=== PATIENT | male | born 1925 | race Caucasian/White ===

== ENCOUNTER 2017-01-26 17:50 | Inpatient (IN) | payer OTHER ==
[~2017-01-26] VITALS: Ht 162.6 cm; Wt 75.7 kg
--- NOTE | 2017-01-26 18:01 | NUR ---
PT WHEELCHAIRED TO LOBBY WITH FAMILY. PT ALERT AND ORIENTED, BREATHING E/U. PT HAD EKG DONE IN TRIAGE RESULTS SHOWN TO . PT AWAITING ROOM AVAIALBILITY.
--- NOTE | 2017-01-26 19:00 | NUR ---
MSE COMPLETED BY DR. ALEMAN
--- NOTE | 2017-01-26 19:21 | NUR ---
PT SEEN SITTING ON GURNEY C/O NON-RADIATING CHEST PAIN SINCE THIS MORNING. PT STATES THAT THE PAIN IS NOW GONE. PT GIVEN ASA, PLACED ON MONITOR, NSR AND PLACED ON 2 PLM 02 VIA NC. PT HAS EVEN AND NONLABORED RESPIRATIONS. PT APPEARS TO BE IN NAD. WILL CONTINUE TO MONITOR. CALL LIGHT IS WITHIN REACH.
[2017-01-26 19:39] LABS: BASOPHIL % 0.4 % (0-2); PLATELET COUNT 190 x10^3mcL (130-400)
[2017-01-26 19:47] LABS: CHLORIDE SERUM 101 mmol/L (98-107); CREATININE SERUM 1.4 mg/dL (0.7-1.3); GLUCOSE SERUM 119 mg/dL (74-106); POTASSIUM SERUM 3.5 mmol/L (3.5-5.1); SODIUM SERUM 139 mmol/L (136-145)
[2017-01-26 19:52] LABS: ALBUMIN 3.7 g/dL (3.4-5.0); ALKALINE PHOSPHATASE 115 U/L (46-116); ALT/SGPT 34 U/L (16-63); AST/SGOT 19 U/L (15-37); BILIRUBIN TOTAL 0.56 mg/dL (0.20-1.00); TOTAL PROTEIN, SERUM 7.3 g/dL (6.4-8.2)
[2017-01-26 20:05] LABS: RED CELL DISTRIBUTION WIDTH 14.8 % (11.5-14.5)
--- NOTE | 2017-01-26 20:40 | NUR ---
PT STATES HE TAKES UNKNOWN BP MEDICATION AT HOME
--- NOTE | 2017-01-26 21:50 | NUR ---
RESIDENT MD IS AT BEDSIDE.
[2017-01-26 22:03] LABS: CHOLESTEROL/HDL RATIO 3.4; PHOSPHOROUS 3.5 mg/dL (2.5-4.9)
--- NOTE | 2017-01-26 22:03 | NUR ---
REPORT CALLED TO KUMAR ALMAZAN. ALL QUESTIONS AND CONCERNS ADDRESSED. PT TO BE MOVED TO ROOM [facility].
--- NOTE | 2017-01-26 22:07 | NUR ---
RECEIVED PT FROM ED VIA [facility], CAME IN DUE TO CHEST PAIN. AAOX4. DENIES HEADACHE/DIZZINESS. NO SOB NOTED. DENIES CHEST PAIN/PRESSURE, SR ON THE MONITOR. DENIES ABDOMINAL DISCOMFORT. BOWEL SOUNDS ACTIVE. IV SITE PATENT AND INTACT. DAUGHTER AT BEDSIDE. SIDE RAILS UPX2. CALL LIGHT ON REACH. ENDORSED
--- NOTE | 2017-01-26 22:10 | NUR ---
RECEIVED REPORT FROM ED AND RESOURCE RN MIKEY. PATIENT ORIENTED TO ROOM. IV FLUID STARTED PER DOCTOR'S ORDER. BED IN LOWEST POSITION. CALL LIGHT WITHIN REACH. WILL CONTINUE TO MONITOR.
[2017-01-26 22:11] LABS: T3 TOTAL 0.97 ng/mL
[2017-01-26 22:22] VITALS: BP 148/78
[2017-01-26 22:24] VITALS: Ht 162.6 cm; Wt 75.7 kg
[2017-01-26 22:38] LABS: FREE T4 0.95 ng/dL (0.76-1.46); FREE THYROXINE INDEX 2.8 ug/dL (1.4-4.5); T4(THYROXINE) 7.3 ug/dL (4.7-13.3)
--- NOTE | 2017-01-27 05:06 | NUR ---
PATIENT RESTED IN INTERVALS THROUGHOUT THE NIGHT. NO DISTRESS NOTED. NO C/O CHEST PAIN/DISCOMFORT. ALL NEEDS MET. SAFETY AND COMFORT MEASURES MAINTAINED. BED IN LOWEST POSITION. CALL LIGHT WITHIN REACH. WILL CONTINUE TO MONITOR AND ENDORSE TO NEXT SHIFT NURSE.
[2017-01-27 06:17] LABS: CALCIUM 8.4 mg/dL (8.5-10.1); CHLORIDE SERUM 105 mmol/L (98-107); CREATININE SERUM 1.1 mg/dL (0.7-1.3); GLUCOSE SERUM 96 mg/dL (74-106); POTASSIUM SERUM 3.2 mmol/L (3.5-5.1); SODIUM SERUM 142 mmol/L (136-145)
[2017-01-27 06:18] LABS: ALBUMIN 3.1 g/dL (3.4-5.0)
[2017-01-27 06:19] LABS: BASOPHIL % 0.4 % (0-2); PLATELET COUNT 173 x10^3mcL (130-400)
[2017-01-27 07:00] LABS: RED CELL DISTRIBUTION WIDTH 14.7 % (11.5-14.5)
--- NOTE | 2017-01-27 07:20 | NUR ---
RECEIVED PATIENT AWAKE AND ALERT SPEAK MICRONESIAN, NO ACUTE DISTRESS NOTED, DENIES CHEST PAIN, PATIENT ASKING IF HE BEING DISCHARGE INFORM PATIENT DOCTOR WILL MAKING ROUND THIS MORNING WILL FIND OUT. POC UPDATED, IV INTACT; CALL LIGHT WITHIN REACH.
--- NOTE | 2017-01-27 09:07 | NUR ---
PATIENT SITTING AT THE SIDE OF BED WITH SON IN THE ROOM, DENIES CHEST PAIN AT THIS TIME. DR. HOOD DISCUSS WITH PATIENT POC, HEART MONITORING AND LAB ( TROPONIN X 1); WILL NEED OUTPATIENT STRESS TEST. DR SAHNI WAS INFORM K 3.2 WITH NEW ORDER TO REPLACE
[2017-01-27 09:57] VITALS: BP 125/70
--- NOTE | 2017-01-27 09:57 | NUR ---
PATIENT SIT IN BED NO COMPLAINTS, ALL DUE MEDS GIVEN, KCL 40 MEQ PO GIVEN FOR K 3.2; SON REMAIN AT BEDSIDE. NEEDS ANTICIPATED.
--- NOTE | 2017-01-27 12:00 | NUR ---
PATIENT SIT AT SIDE OF BED NO COMPLAINTS, SON REMAIN AT BEDSIDE. NEEDS ANTICIPATED. CONT TO MONITOR.
[2017-01-27 13:15] VITALS: BP 129/68
--- NOTE | 2017-01-27 14:54 | NUR ---
PATIENT LAYING IN BED NO DISTRESS NOTED, TECH AT BEDSIDE PERFORM ECHO. CONT TO MONITOR.
[2017-01-27 17:59] VITALS: BP 143/77
--- NOTE | 2017-01-27 18:12 | NUR ---
PATIENT UP TO BATHROOM AND BACK INDEPENDENT NO COMPLAINT, IV INTACT, VISITORS AT BEDSIDE, CONT TO MONITOR.
--- NOTE | 2017-01-27 19:10 | NUR ---
SEEN IN BED AAOX4. NO RESP DISTRESS ON ROOM AIR. DENIES CHEST PAIN OR CHEST PRESSURE. LUNG SOUND CTA. NSR ON TELEMETRY#21. LUNG SOUND CTA. STS ABLE TO AMBULATE TO BATHROOM WITH STEADY GAIT. IVF NS INFUSING WELL TO RIGHT WRIST IV SITE. PLAN OF CARE DISCUSSED. CALL LIGHT PLACED WITHIN EASY REACH. SIDERAILS UP X2.
[2017-01-27 21:29] VITALS: BP 133/77
--- NOTE | 2017-01-27 22:00 | NUR ---
NOTED IV TO RIGHT WRIST INFILTRATED, NO SIGNS OF INFLAMATION NOTED. IV CATH REMOVED AND NEW IV CATH#22 INSERTED TO LFA WITH GOOD BLD RETURNED AND FLUSHED WELL. IVF NS CONTINUED AT 50ML/HR.
[2017-01-28 05:42] VITALS: BP 137/72; BP 169/105
[2017-01-28 06:22] LABS: BASOPHIL % 0.4 % (0-2); PLATELET COUNT 175 x10^3mcL (130-400)
--- NOTE | 2017-01-28 06:22 | NUR ---
NO ANY ACUTE DISTRESS THROUGHOUT SHIFT. VSS. DENIES CHEST PAIN. BRP. IVF NS INFUSING WELL TO LFA IV SITE.
[2017-01-28 06:39] LABS: CARBON DIOXIDE 29.2 mmol/L (21-32); CHLORIDE SERUM 107 mmol/L (98-107); GLUCOSE SERUM 91 mg/dL (74-106); MAGNESIUM 1.9 mg/dL (1.8-2.4); PHOSPHOROUS 3.3 mg/dL (2.5-4.9); SODIUM SERUM 141 mmol/L (136-145)
[2017-01-28 07:23] LABS: RED CELL DISTRIBUTION WIDTH 14.8 % (11.5-14.5)
--- NOTE | 2017-01-28 08:00 | NUR ---
A/A/OX3; DENIED KRISTINA PAIN. TELE#21 = SR; HR=81; NO RESP DISTRESS ON RA. AMBULATORY; TOLERATED DIET WELL. IVF OF NS 50CC/HR INFUSING WELL TO RFA. IV SITE CLEAN. CALL LIGHT IN REACH.
--- NOTE | 2017-01-28 08:40 | NUR ---
DR. HOOD AND MEDICAL TEAM MADE MORNING ROUND. PLAN OF CARE DISCUSSED WITH PATIENT AND HIS DAUGHTER, INCLUDED WITH DISCHARGE TO HOME TODAY. PATIENT AND FAMILY AGREED WITH PLAN OF CARE.
[2017-01-28 11:00] VITALS: BP 140/72
[2017-01-28] MEDS ORDERED: LIPI10 PO ×2 (11:54→11:56)
[2017-01-28] MEDS ORDERED: ECO81 PO (11:56)
[2017-01-28] MEDS ORDERED: ZES10 PO (11:56)
[2017-01-28 12:43] VITALS: BP 140/72
--- NOTE | 2017-01-28 13:43 | NUR ---
DENIED CHEST PAIN. D/C TO HOME PER ORDER. INSTRUCTION GIVEN TO SHABBIR AND HIS DAUGHTER. IV D/C'D. CONDITION STABLE.
== END 2017-01-28 13:48 | disposition home or self-care (01) | DRG 205 ==
LOC: ED 17:50 → DU 21:12 → MU 22:15 → DU 22:17
PROVIDERS: Emergency Medicine; ADMIT Family Medicine
DX: M94.0 Chondrocostal junction syndrome [Tietze] (principal); N17.0 Acute kidney failure with tubular necrosis; J98.11 Atelectasis; I10 Essential (primary) hypertension
CPT/HCPCS: 82962; 83880; 84439; J7030; Q0092